=== PATIENT | male | born 1995 | race Caucasian/White ===

== ENCOUNTER 2022-11-10 13:17 | Emergency (ER) | payer SELFPAY ==
[2022-11-10 13:30] VITALS: BP 114/75; PULSE 75; RESP 14; TEMP 36.6; O2SAT 98
--- NOTE | 2022-11-10 13:52 | W.ED.SKABFB ---
HPI - Skin/Abscess/Foreign Bdy General: Chief complaint: Skin/Abscess/Foreign Body Stated complaint: bug bites Time Seen by Provider: 11/10/22 13:20 Source: patient Mode of arrival: ambulatory Limitations: no limitations History of Present Illness: Patient is a 27-year-old male who presents to ED today for evaluation of what he believes is multiple bug bites that he has noticed over the past 2 to 3 days. He states bites are very pruritic. He has not been working outside recently or had any outdoor exposures. He does state he recently moved to the area and is staying in a new place. He thinks possibly his bites are bedbugs. complaint: insect bite/sting Onset (ago): day(s) Tetanus up to date: yes Location: generalized Severity: mild Quality: pruritic Relieving factors: none Exacerbating factors: none Context: other (new residence) Associated symptoms: Reports no associated symptoms; Deny chills or fever(s) Treatments prior to arrival: none Review of Systems Const: Denies: fever(s), chills, body aches, fatigue or malaise Musc: Denies: neck pain, back pain, extremity pain or joint pain Skin/Breast: Reports: other (multiple bug bites) Physical Exam Const: COMMON NORMALS: no acute distress, average body habitus, patient oriented x3, no limitations, healthy appearing, alert and well nourished Neuro: COMMON NORMALS: patient oriented x3 SENSORIUM/ORIENTATION: Yes alert Skin: NARRATIVE SKIN EXAM: pt has multiple small wheel/papules with about a quarter of surrounding erythema consisted with bug bites with localized reaction; he has a larger one to R anterior thigh that concerned him but it too looks like localized reaction RASHES: rashes noted Course Vital Signs: Vital signs: Vital Signs Temperature 97.8 F 11/10/22 13:30 Pulse Rate 75 11/10/22 13:30 Respiratory Rate 14 11/10/22 13:30 Blood Pressure 114/75 11/10/22 13:30 Pulse Oximetry 98 11/10/22 13:30 Oxygen Delivery Me thod 11/10/22 13:30 MDM - Skin/Abscess/Foreign Bdy Medicial Decision Making Lesions certainly could be related to bed bugs. Possible fleas. Less likely scabies/mites/mosquito/triggers. Recommend topical Benadryl and Hydrocortisone cream and washing all bedding, carpets, couches/sofas, and chemical infestation treatment of the home. Discharge Plan Discharge Patient Disposition: Home Clinical Impression: Bug bites Condition: Stable Discharge Orders: Discharge ED (Routine); Ordered 11/10/22 Ordered By: Alicia Spear Coding Level of Care Code ED Wheel And Axle Inspector for Salvador Bradford
--- NOTE | 2022-11-12 14:32 | DCPLANNER ---
analytical manager called patient due to no primary care physician - patient stated that he would call lining caser back if he needed help in getting established with a primary care physician.
== END 2022-11-10 14:29 | disposition home or self-care (01) ==
PROVIDERS: Emergency Provider Physician Assistant
DX: S70.361A Insect bite (nonvenomous), right thigh, initial encounter (principal); W57.XXXA Bitten or stung by nonvenomous insect and other nonvenomous arthropods, initial encounter
CPT/HCPCS: 99283

== ENCOUNTER 2022-12-24 14:50 | Emergency (ER) | payer SELFPAY ==
[2022-12-24 14:52] VITALS: BP 123/79; PULSE 68; RESP 18; TEMP 36.4; O2SAT 100
--- NOTE | 2022-12-24 15:04 | XR_ITS ---
WS: [id number] Left hand, 3 views, 12/24/2022 Clinical Data: punched object Comparison: None. Findings: No fractures or dislocations are seen. The soft tissues are unremarkable. The joint spaces are normal There is a small orthopedic device in the ulnar base of the left thumb proximal phalanx. XR/XR hand LT min 3V* [id number] Impression: Negative left hand.
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
[2022-12-24 16:10] VITALS: PULSE 65; RESP 20; O2SAT 100
[2022-12-24] MEDS: neomycin-poly-bacitracin oint 28 gm 1 APPLIC TOPICAL (16:10)
--- NOTE | 2022-12-29 15:43 | DCPLANNER ---
manager publishing called patient due to no primary care provider - no answer at this time.
== END 2022-12-24 16:11 | disposition home or self-care (01) ==
PROVIDERS: Emergency Provider Physician Assistant
DX: T23.222A Burn of second degree of single left finger (nail) except thumb, initial encounter (principal); X08.8XXA Exposure to other specified smoke, fire and flames, initial encounter
CPT/HCPCS: 73130; 99283

== ENCOUNTER 2023-01-25 14:44 | Emergency (ER) | payer OTHER, SELFPAY ==
[2023-01-25 15:20] VITALS: BP 95/63; PULSE 72; RESP 12; TEMP 36.7; O2SAT 97; BMI 21.2
--- NOTE | 2023-01-25 15:39 | DCPLANNER ---
Addendum entered by Palmira Sparks 03/31/23 12:06: Patient did attend appointment Original Note: international accounting manager spoke with patient due to no primary care physician - patient stated that he would like to be established with a provider. international accounting manager called [facility] - a follow up appointment was scheduled for , February 03, 2023 at 10:[address] Hunter. Patient is aware of appointment.
[2023-01-25 15:54] VITALS: BP 120/57; PULSE 75; RESP 14; TEMP 36.8; O2SAT 98
[2023-01-25 17:03] VITALS: BP 119/71; PULSE 63; RESP 16; O2SAT 99
--- NOTE | 2023-01-25 17:24 | W.ED.BACK ---
HPI - Back Pain/Injury General: Chief Complaint: Back Pain/Injury Stated Complaint: back pain Time Seen by Provider: 01/25/23 17:23 History of Present Illness: 27-year-old male patient comes in today with complaints of low back pain. Patient reports 4 days ago he had increased pain and discomfort after trying to get up out of bed. Patient reports he was well up until the morning when he woke up. Patient does have a history of scoliosis. Patient denies any recent injuries. Patient reports no other chronic medical problems. Patient is on parole and does frequent drug testing. Associated symptoms: Deny fever(s), nausea or vomiting Review of Systems Const: Denies: fever(s) Card: Denies: chest pain Resp: Denies: dyspnea GI: Denies: nausea or vomiting : Denies: difficulty urinating Musc: Reports: back pain Skin/Breast: Denies: rash PFSH ED PFSH: Medical History (Updated 01/25/23 @ 17:35 by WILLIE Michele) No pertinent family history Surgical History (Updated 12/25/22 @ 07:26 by LORNA Hodges) No pertinent past surgical history Physical Exam Const: COMMON NORMALS: alert HENMT: COMMON NORMALS: normocephalic HEAD & SCALP: normocephalic Neck/C-Spine: COMMON NORMALS: full ROM CERVICAL SPINE: No Cervical spine tenderness Chest: COMMONS NORMALS: normal palpation of entire chest wall Resp: COMMON NORMALS: normal respiratory effort and clear to auscultation bilaterally AUSCULTATION: clear to auscultation bilaterally Cardio: COMMON NORMALS: regular rate RATE: regular rate GI: COMMON NORMALS: non-tender Back/Pelvis: LUMBAR SPINE/LOWER BACK: Yes lumbar spinal tenderness Lumbar spinal tenderness location: L3 and Yes paraspinal muscle tenderness Lumbar paraspinal muscle tenderness: bilateral Extremity: COMMON NORMALS: no pedal edema Neuro: SENSORIUM/ORIENTATION: Yes alert Skin: COMMON NORMALS: turgor normal GENERAL SKIN EXAM: turgor normal Course Vital Signs: Vital signs: Vital Signs Temperature 98.3 F 01/25/23 15:54 Pulse Rate 63 01/25/23 17:03 Respiratory Rate 16 01/25/23 17:03 Blood Pressure 119/71 01/25/23 17:03 Pulse Oximetry 99 01/25/23 17:03 Oxygen Delivery Me thod Room Air 01/25/23 17:03 MDM - Back Pain/Injury Medical Decision Making 27-year-old male patient comes in with back pain that started approximately 4 days ago. Patient reports he was getting out of bed and felt a strain in his lower back since then he has had increased pain and discomfort. On exam patient has muscle tenderness bilaterally to lumbar area, and some point tenderness along the spine at the L3 level. No loss of bowel or bladder control is reported. Vital signs are normal. Differential diagnosis includes but not limited to intervertebral disc disease, facet arthropathy, lumbar strain. Suspect some intervertebral disc disease due to patient's history of scoliosis. Recommend maintaining normal activity is much as possible, reassured patient that most often this is a 7 to 10-day episode and usually returns back to baseline without difficulty. Recommend diclofenac 75 mg twice a day for pain and inflammation. Given hydrocodone for severe pain. Recommend to follow-up with primary care for further instruction and evaluation. Discharge Plan Discharge Patient Disposition: Home Clinical Impression: Strain of lumbar region Condition: Stable Prescriptions: New diclofenac sodium 75 mg tablet,delayed release (DR/EC) 75 mg PO BID Qty: 20 0RF hydrocodone-acetaminophen 5-325 mg tablet 1 tab PO BID PRN (Reason: pain (scale score 7-10)) Qty: 10 0RF Discharge Orders: Discharge ED (Routine); Ordered 01/25/23 Ordered By: Miguel A Amador Discharge Diet: Usual diet Discharge Activity: Increase activity as tolerated Patient Instructions: Low Back Strain (ED), Lower Back Exercises (ED), Opioid Safety Activity Restrictions/Additional Instructions: Stay as active as possible. Gentle stretching and range of motion exercises. Drink plenty of water with medication. Try to return to normal activity as soon as possible. Most often it takes 7 to 10 days for recovery and back to baseline. Follow-up with primary care in 1 week for recheck. Return to ED for new concerns or worsening symptoms such as high fever, loss of bowel or bladder control. Stand Alone Forms: Work/School Release Coding Level of Care Code ED Medical Device Sales Consultant for Salvador Bradford
[2023-01-25] MEDS: ketorolac 30 mg/mL INJ IM (17:43)
[2023-01-25] MEDS: HYDROcodone-acetaminophen 5-325 mg Tablet 1 TAB PO (17:43)
== END 2023-01-25 17:47 | disposition home or self-care (01) ==
PROVIDERS: Emergency Provider Nurse Practitioner Family; PCP Family Medicine
DX: S39.012A Strain of muscle, fascia and tendon of lower back, initial encounter (principal); X58.XXXA Exposure to other specified factors, initial encounter
CPT/HCPCS: 96372; 99284; J1885

== ENCOUNTER → 2023-05-22 18:58 | Outpatient (BNVA) | payer SELFPAY | PROVIDERS: PCP Family Medicine | DX: M25.571 Pain in right ankle and joints of right foot (principal) | CPT/HCPCS: 73610 ==

== ENCOUNTER 2023-05-23 06:00 | Outpatient (CLI) | payer SELFPAY | END 2023-05-23 06:01 | disposition home or self-care (01) | LOC: SPT 06-10 09:52 | PROVIDERS: PCP Family Medicine; Visit Provider Podiatrist Foot & Ankle Surgery | DX: Z46.89 Encounter for fitting and adjustment of other specified devices (principal); S93.401D Sprain of unspecified ligament of right ankle, subsequent encounter; S99.911D Unspecified injury of right ankle, subsequent encounter; X58.XXXD Exposure to other specified factors, subsequent encounter | CPT/HCPCS: 97760; L4361 ==

== ENCOUNTER → 2023-05-23 15:57 | Outpatient (BNVA) | payer SELFPAY | PROVIDERS: PCP Family Medicine; Visit Provider Podiatrist Foot & Ankle Surgery | DX: S93.401A Sprain of unspecified ligament of right ankle, initial encounter; V00.138A Other skateboard accident, initial encounter | CPT/HCPCS: 73630 ==

== ENCOUNTER 2023-09-07 02:34 | Emergency (ER) | payer OTHER, SELFPAY ==
[2023-09-07 02:35] VITALS: BP 114/64; PULSE 80; RESP 18; TEMP 36.7; O2SAT 100; BMI 19.8
[2023-09-07 02:39] VITALS: RESP 18
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
--- NOTE | 2023-09-07 03:02 | PC.NURSE ---
provider at bedside with patient. Wound numbed by provider, cleaned with betadine swabs, sutured.
[2023-09-07 03:22] VITALS: PULSE 69; RESP 16; O2SAT 99
== END 2023-09-07 03:25 | disposition home or self-care (01) ==
PROVIDERS: Emergency Provider Emergency Medicine; PCP Family Medicine
DX: S81.012A Laceration without foreign body, left knee, initial encounter (principal); Z72.0 Tobacco use; W26.0XXA Contact with knife, initial encounter
CPT/HCPCS: 12002; 99282

== ENCOUNTER 2023-09-15 13:06 | Emergency (ER) | payer OTHER, SELFPAY ==
[2023-09-15 13:29] VITALS: PULSE 84; RESP 18; TEMP 36.6; O2SAT 92
--- NOTE | 2023-09-15 13:41 | XR_ITS ---
WS: [id number] XR hand RT min 3V* [id number] REASON FOR EXAM: injury FINDINGS: No fracture identified. Joint spaces of the right hand are intact and well preserved. Very small vague soft tissue density dorsal soft tissues of the index finger at the level of the dist al aspect of the proximal phalanx. IMPRESSION: No acute bone or joint abnormality. Very small soft tissue foreign body index finger.
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
[2023-09-15] MEDS: tetanus-dipt-pertussis 0.5 mL SDV IM (14:09)
[2023-09-15] MEDS: lidocaine 1% INJ 10 mL (per mL) 20 ML INJECTION (14:10)
[2023-09-15 14:22] VITALS: RESP 18; O2SAT 92
== END 2023-09-15 14:24 | disposition home or self-care (01) ==
PROVIDERS: Emergency Provider Emergency Medicine; PCP Family Medicine
DX: S61.212A Laceration without foreign body of right middle finger without damage to nail, initial encounter (principal); Z72.0 Tobacco use; W25.XXXA Contact with sharp glass, initial encounter; Z23 Encounter for immunization
CPT/HCPCS: 12001; 73130; 90471; 90715; 99283